=== PATIENT | female | born 1990 | race Caucasian/White ===

== ENCOUNTER 2018-10-23 14:32 | Emergency (ER) | payer OTHER ==
[2018-10-23] MEDS: ONDANSETRON (ODT) 4 MG TAB ODT (16:08)
[2018-10-23 16:22] LABS: URINE BLOOD (Dip) POC 3+ (NEGATIVE); URINE GLUCOSE (Dip) POC Negative (NEGATIVE); URINE KETONES (Dip) POC Negative (NEGATIVE); URINE LEUKOCYTE EST (Dip) POC Negative (NEGATIVE); URINE NITRITE (Dip) POC Negative (NEGATIVE); URINE TOTAL PROTEIN POC Negative (NEGATIVE)
[2018-10-23 16:22] LABS: URINE PH (Dip) POC 5.5 (5.0-8.5)
[2018-10-23] MEDS: KETOROLAC 60 MG INJ IM (16:22)
== END 2018-10-23 17:29 | disposition home or self-care (01) ==
LOC: FTE 14:32
DX: H81.10 Benign paroxysmal vertigo, unspecified ear (principal)
CPT/HCPCS: 81003; 81025; 96372; 99284-25

== ENCOUNTER 2019-01-18 09:56 | Emergency (ER) | payer OTHER | END 2019-01-18 10:49 | disposition home or self-care (01) | LOC: FTE 09:56 | DX: J06.9 Acute upper respiratory infection, unspecified (principal) | CPT/HCPCS: 99283; Z7502 ==